=== PATIENT | female | born 1985 | race Two or more races ===

== ENCOUNTER 2023-05-09 15:05 | Emergency (ER) | payer MEDICAID, OTHER ==
[~2023-05-09] VITALS: Ht 152.4 cm; Wt 185.4 kg
[2023-05-09 15:49] VITALS: BP 159/89; PULSE 89; RESP 18; TEMP 98; O2SAT 96
[2023-05-09] MEDS ORDERED: IBUP-1456 PO (17:30)
[2023-05-09] MEDS ORDERED: METH-1182 PO (17:30)
== END 2023-05-09 17:26 | disposition home or self-care (01) ==
LOC: ER 15:05
DX: I83.891 Varicose veins of right lower extremity with other complications (principal); E66.01 Morbid (severe) obesity due to excess calories; Z68.45 Body mass index [BMI] 70 or greater, adult
CPT/HCPCS: 93971

== ENCOUNTER 2024-01-16 10:49 | Emergency (ER) | payer MEDICAID ==
[~2024-01-16] VITALS: Ht 157.5 cm; Wt 186.9 kg
[~2024-01-16 10:49] MED LIST: IBUP-1456 PO; METH-1182 PO
[2024-01-16 11:52] LABS: Basophils # (auto) 0.1 10 ^3/uL (0-0.2); Basophils % (auto) 0.7 % (0.0-2.0); Eosinophils # (auto) 0.2 10 ^3/uL (0-0.8); Eosinophils % (auto) 1.7 % (0.0-7.0); Hemoglobin 15.9 g/dL (12.2-16.2); Lymphocytes # (auto) 3.7 10 ^3/uL (0.4-5.4); Lymphocytes % (auto) 30.4 % (10.0-50.0); Mean Corpuscular Hgb Conc. 33.1 g/dL (32.0-36.0); Mean Corpuscular Volume 84.6 fL (80.0-100.0); Monocytes # (auto) 1.2 10 ^3/uL (0-1.3); Monocytes % (auto) 9.5 % (0.0-12.0); Neutrophils % (auto) 57.7 % (37.0-80.0); Nucleated Red Blood Cells % 0.3 %; Red Blood Cells 5.67 10^6/uL (4.0-5.20); Red Cell Distribution Width 14.1 % (11.8-14.3); White Blood Cell 12.1 10^3/uL (4.4-10.8)
[2024-01-16 11:59] LABS: Alanine Aminotransferase 106 U/L (7-40); Alkaline Phosphatase 93 U/L (46-116); Anion Gap 9 (5-15); BUN/Creatinine Ratio 17.2 (10.0-20.0); Blood Urea Nitrogen 15 mg/dL (9-23); Calcium 10.1 mg/dL (8.7-10.4); Carbon Dioxide 24 mmol/L (20-30); Chloride 105 mmol/L (98-107); Glucose 124 mg/dL (74-106); Lipase 47 U/L (12-53); Sodium 138 mmol/L (136-145)
[2024-01-16 12:00] LABS: Albumin 4.5 g/dL (3.2-4.8); Aspartate Aminotransferase 53 U/L (13-40); Bilirubin, Total 0.6 mg/dL (0.2-1.0); Total Protein 7.7 g/dL (5.7-8.2)
[2024-01-16] MEDS: KETOROLAC TROMETH 60MG/2ML VIAL IM ONE (12:39)
[2024-01-16 12:56] LABS: Urine Bacteria FEW /hpf (None Seen); Urine Blood 2+ /uL (Negative); Urine Clarity Clear (Clear); Urine Color Light-Yellow (Yellow); Urine Protein, UAD Negative (Negative); Urine Specific Gravity 1.009 (1.001-1.035); Urine Urobilinogen Normal (Negative); Urine WBC 1 /hpf (0 - 5)
[2024-01-16 13:21] VITALS: BP 108/81; PULSE 62; RESP 18; TEMP 98.1; O2SAT 97
== END 2024-01-16 13:22 | disposition home or self-care (01) ==
LOC: ER 10:49
DX: N20.0 Calculus of kidney (principal); R10.2 Pelvic and perineal pain; K76.0 Fatty (change of) liver, not elsewhere classified; Z79.1 Long term (current) use of non-steroidal anti-inflammatories (NSAID); Z79.899 Other long term (current) drug therapy
CPT/HCPCS: 36415; 74176; 80053; 81001; 83690; 84702; 85025; 96372; 99285; J1885